=== PATIENT | female | born 1990 | race Caucasian/White ===

== ENCOUNTER → 2017-01-22 | Outpatient (CLI) | payer OTHER ==
--- NOTE | 2017-01-22 08:24 | RAD ---
Complete abdomen ultrasound study Indications: Neutropenia. Unspecified type. ICD-10-CM D70.9. Abdominal pain. Findings: The pancreas is homogeneous in appearance without focal enlargement. No focal aneurysmal dilatation of the abdominal aorta is seen. The intrahepatic portion of the IVC is patent. The liver measures 16.3 cm in length which is normal. There is a small homogeneous solid echogenic nodule within the anterior segment of the right lobe of the liver measuring 8 mm. This most likely represents a small hemangioma. The liver measures 16.3 cm in length. The gallbladder is normal and no gallstones are seen. The extra hepatic bile duct measures 4 mm in caliber which is normal. The length of the right kidney is 10.8 cm and the length of the left kidney is 11.5 cm. No hydronephrosis or renal mass or perinephric collection is seen on either side. The spleen is homogeneous and measures 11.3 cm in length which is normal. No ascites is seen. IMPRESSION: Small 8 mm solid echogenic nodule of the liver most likely representing a hemangioma. This may be followed with a sonogram of the liver in 3-6 months to ensure stability.
== END | disposition home or self-care (01) ==
LOC: US 07:43
PROVIDERS: ATTEND Internal Medicine Hematology & Oncology
DX: D70.9 Neutropenia, unspecified (principal); K76.89 Other specified diseases of liver
CPT/HCPCS: 76700